=== PATIENT | male | born 1955 | race American Indian/Alaskan Native ===

== ENCOUNTER 2018-02-22 15:25 | Emergency (ER) | payer MEDICAID, OTHER ==
[2018-02-22] MEDS ORDERED: Albuterol 0.083% Inhal Sol (2.5 mg/3 mL) UD INH STA (15:43)
[2018-02-22] MEDS ORDERED: Albuterol 0.042% Inhal Sol (1.25 mg/3 mL) UD ONE (16:08)
--- NOTE | 2018-02-22 16:08 | RAD ---
HISTORY: COMPARISON: No prior. TECHNIQUE: Chest PA and lateral FINDINGS: LINES AND TUBES: None. LUNG AND PLEURA: The lungs are hyperinflated and there is peribronchial thickening with chronic changes in both lungs. No focal consolidation. HEART AND MEDIASTINUM: The heart is not enlarged. The hilar and mediastinal contours are within normal limits. SKELETAL STRUCTURES: The bony structures are within normal limits for the patient's age. VISUALIZED UPPER ABDOMEN: Normal. OTHER FINDINGS: None. IMPRESSION: No active pulmonary disease. COPD.
[2018-02-22] MEDS ORDERED: Albuterol 0.083% Inhal Sol (2.5 mg/3 mL) UD ONE (16:09)
[2018-02-22 16:34] LABS: BASO # 0.1 K/uL (0.0-0.2); BASO % 1.4 % (0.0-2.0); EOS % 0.4 % (0.0-4.0); HEMOGLOBIN 12.7 g/dL (12.0-18.0); LYMPH # 1.5 K/uL (1.0-4.3); LYMPH % 42.8 % (20.0-40.0); MEAN CELL VOLUME 92.6 fl (80.0-94.0); MEAN CORPUSCULAR HEMOGLOBIN 31.3 pg (27.0-31.0); MEAN CORPUSCULAR HGB CONC 33.8 g/dL (33.0-37.0); MONO # 0.4 K/uL (0.0-0.8); MONO % 10.6 % (0.0-10.0); NEUT # 1.6 K/uL (1.8-7.0); NEUT % 44.8 % (50.0-75.0); NRBC % 0.1 % (0.0-0.0); RBC 4.05 Mil/uL (4.40-5.90); RED CELL DISTRIBUTION WIDTH 14.3 % (11.5-14.5); WHITE BLOOD COUNT 3.6 K/uL (4.8-10.8)
--- NOTE | 2018-02-22 17:03 | ED PDOC ---
HPI: CCC, URI, Sore Throat Time Seen by Provider: 02/22/18 15:37 Chief Complaint (Nursing): Fever Chief Complaint (Provider): Feverish, cough x 1 week History Per: Patient History/Exam Limitations: no limitations Onset/Duration Of Symptoms: Days Current Symptoms Are (Timing): Still Present Sick Contacts (Context): None Associated Symptoms: Fever (did not take temperature at hoe ), Cough, Other ( Wheezing x 3 days). denies: Sputum, Myalgias Additional Complaint(s): Pt denies SOB. Pt is a smoker > 20 years. Pt denies history of asthma or COPD. Pt states denies SOB and states he is concerned he "caught pneumonia" being in [place] since he is from [place]. Past Medical History Reviewed: Historical Data, Nursing Documentation, Vital Signs Vital Signs: Last Vital Signs Temp 98 F 02/22/18 17:22 Pulse 78 02/22/18 17:22 Resp 20 02/22/18 17:22 BP 120/78 02/22/18 17:22 Pulse Ox 97 02/22/18 17:22 - Medical History PMH: No Chronic Diseases - Surgical History Surgical History: No Surg Hx - Family History Family History: States: No Known Family Hx - Living Arrangements Living Arrangements: With Family - Social History Current smoker - smoking cessation education provided: Yes Alcohol: None Drugs: Denies - Home Medications Home Medications: Ambulatory Orders Medication Instructions Recorded Albuterol Sulfate [Proventil Hfa] 0.09 mg IH Q6H #1 inhaler 02/22/18 Azithromycin 250 mg PO DAILY #6 tab 02/22/18 predniSONE [predniSONE Tab] 20 mg PO DAILY #12 tab 02/22/18 - Allergies Allergies/Adverse Reactions: Allergies Allergy/AdvReac Type Severity Reaction Status Date / Time No Known Allergies Allergy Verified 02/22/18 15:32 Review of Systems ROS Statement: Except As Marked, All Systems Reviewed And Found Negative Constitutional: Positive for: Fever, Chills, Malaise ENT: Negative for: Ear Pain Cardiovascular: Negative for: Chest Pain, Palpitations Respiratory: Positive for: Cough. Negative for: Shortness of Breath Physical Exam - Reviewed Nursing Documentation Reviewed: Yes Vital Signs Reviewed: Yes - Physical Exam Appears: Positive for: Well, Non-toxic, No Acute Distress Head Exam: Positive for: ATRAUMATIC, NORMAL INSPECTION, NORMOCEPHALIC Skin: Positive for: Normal Color, Warm, DRY Eye Exam: Positive for: Normal appearance ENT: Positive for: Normal ENT Inspection Neck: Positive for: Normal, Painless ROM Cardiovascular/Chest: Positive for: Regular Rate, Rhythm Respiratory: Positive for: Wheezing (Diffuse ). Negative for: Normal Breath Sounds, Accessory Muscle Use Back: Positive for: Normal Inspection Extremity: Positive for: Normal ROM Neurologic/Psych: Positive for: Alert, Oriented - Laboratory Results Result Diagrams: 02/22/18 16:21 02/22/18 16:21 - ECG O2 Sat by Pulse Oximetry: 94 Medical Decision Making Medical Decision Making: Oxygen 97% after 1 treatment. Second treatment ordered. Disposition - Clinical Impression Clinical Impression: URI (upper respiratory infection), COPD (chronic obstructive pulmonary disease) - Patient ED Disposition Is Patient to be Admitted: No Counseled Patient/Family Regarding: Diagnosis, Need For Followup, Rx Given - Disposition Disposition: Routine/Home Disposition Time: 16:58 Condition: STABLE Prescriptions: Albuterol Sulfate [Proventil Hfa] 0.09 mg IH Q6H #1 inhaler Azithromycin 250 mg PO DAILY #6 tab predniSONE [predniSONE Tab] 20 mg PO DAILY #12 tab Instructions: Bacterial Upper Respiratory Infection, Adult, Exacerbation of COPD Forms: [employer] (Upper Sorbian)
[2018-02-22] MEDS ORDERED: Albuterol-Ipratrop 3 mg / 0.5 (3 ml) UD INH STA (17:05)
[2018-02-22 17:22] VITALS: RESP 20
[2018-02-22 17:22] LABS: ALB/GLOB RATIO 0.9 (1.0-2.1); ALBUMIN 3.9 g/dL (3.5-5.0); ALT/SGPT 60 U/L (21-72); AST/SGOT 61 U/L (17-59); BLOOD UREA NITROGEN 12 mg/dl (9-20); CALCIUM 9.4 mg/dL (8.4-10.2); GFR AFRICAN-AMERICAN > 60; GFR NON-AFRICAN AMERICAN > 60
[2018-02-22 17:25] VITALS: BP 120/70; PULSE 72; TEMP 98.4
[2018-02-22 17:27] VITALS: O2SAT 94
== END 2018-02-22 17:25 | disposition home or self-care (01) ==
LOC: H.ER 15:25
DX: J44.9 Chronic obstructive pulmonary disease, unspecified (principal); J06.9 Acute upper respiratory infection, unspecified; F17.200 Nicotine dependence, unspecified, uncomplicated

== ENCOUNTER 2018-07-28 16:39 | Emergency (ER) | payer MEDICAID, MEDICARE, OTHER ==
[2018-07-28 16:45] VITALS: BP 144/80; PULSE 66; RESP 18; TEMP 98.5; O2SAT 99
--- NOTE | 2018-07-28 17:45 | ED PDOC ---
HPI: General Adult Chief Complaint (Provider): Nasal Dicharge History Per: Patient History/Exam Limitations: no limitations Current Symptoms Are (Timing): Still Present Additional Complaint(s): 62 year old male PMHx of HIV positive presents to the ER for an evaluation of runny nose onset for coupe of days. He states he has not taken any over the counter medication for relief. He has an appointment with his HIV doctor next week. He is not compliant with his medication for one month. Denies cough, fever, URI symptoms or headache. <Jackie Dunlap - Last Filed: 07/28/18 17:58> <Skyler Xie - Last Filed: 07/30/18 14:45> Time Seen by Provider: 07/28/18 16:49 Chief Complaint (Nursing): Flu-like Symptoms Past Medical History Reviewed: Historical Data, Nursing Documentation, Vital Signs Vital Signs: Last Vital Signs Temp 98.5 F 07/28/18 16:43 Pulse 66 07/28/18 16:43 Resp 18 07/28/18 16:43 BP 144/80 07/28/18 16:43 Pulse Ox 99 07/28/18 16:43 - Medical History PMH: COPD, HIV - Family History Family History: States: Unknown Family Hx - Immunization History Hx Tetanus Toxoid Vaccination: No Hx Influenza Vaccination: No Hx Pneumococcal Vaccination: No <Jackie Dunlap - Last Filed: 07/28/18 17:58> Vital Signs: Last Vital Signs Temp 98.5 F 07/28/18 16:43 Pulse 66 07/28/18 16:43 Resp 18 07/28/18 16:43 BP 144/80 07/28/18 16:43 Pulse Ox 99 07/28/18 17:59 <Skyler Xie - Last Filed: 07/30/18 14:45> - Home Medications Home Medications: Ambulatory Orders Medication Instructions Recorded RX: Albuterol Sulfate [Proventil 0.09 mg IH Q6H #1 inhaler 02/22/18 Hfa] RX: Azithromycin 250 mg PO DAILY #6 tab 02/22/18 RX: predniSONE [predniSONE Tab] 20 mg PO DAILY #12 tab 02/22/18 - Allergies Allergies/Adverse Reactions: Allergies Allergy/AdvReac Type Severity Reaction Status Date / Time No Known Allergies Allergy Verified 02/22/18 15:32 Review of Systems ROS Statement: Except As Marked, All Systems Reviewed And Found Negative Constitutional: Negative for: Fever ENT: Positive for: Nose Discharge. Negative for: Nose Congestion Respiratory: Negative for: Cough Neurological: Negative for: Headache Psych: Negative for: Suicidal ideation (homcidal ideation) <Jackie Dunlap Dot - Last Filed: 07/28/18 17:58> Physical Exam - Reviewed Nursing Documentation Reviewed: Yes Vital Signs Reviewed: Yes - Physical Exam Appears: Positive for: Well (eating chips ), Non-toxic, No Acute Distress Head Exam: Positive for: ATRAUMATIC, NORMAL INSPECTION, NORMOCEPHALIC Skin: Positive for: Normal Color, Warm, Dry. Negative for: Rash Eye Exam: Positive for: Normal appearance ENT: Positive for: Normal ENT Inspection Cardiovascular/Chest: Positive for: Regular Rate, Rhythm. Negative for: Murmur Respiratory: Positive for: Normal Breath Sounds. Negative for: Decreased Breath Sounds, Wheezing, Respiratory Distress Neurologic/Psych: Positive for: Alert, Oriented (x3). Negative for: Motor/Sensory Deficits <Jackie Dunlap S - Last Filed: 07/28/18 17:58> - ECG O2 Sat by Pulse Oximetry: 99 (RA) <Jackie Dunlap S - Last Filed: 07/28/18 17:58> Medical Decision Making Medical Decision Making: Time: 1648 Patient eloped before reassessment or discharge papers provided. Scribe Attestation: Documented by Jessica Portillo, acting as a scribe for Jackie Dunlap PA-C. Provider Scribe Attestation: All medical record entries made by the Scribe were at my direction and personally dictated by me. I have reviewed the chart and agree that the record accurately reflects my personal performance of the history, physical exam, medical decision making, and the department course for this patient. I have also personally directed, reviewed, and agree with the discharge instructions and disposition. <Jackie Dunlap S - Last Filed: 07/28/18 17:58> Disposition - Patient ED Disposition Is Patient to be Admitted: No - Disposition Disposition: Left W/O Treatment Disposition Time: 17:32 <Jackie Dunlap S - Last Filed: 07/28/18 17:58> <Skyler Xie - Last Filed: 07/30/18 14:45> - Clinical Impression Clinical Impression: Runny nose, Nasal congestion - Disposition Condition: STABLE Instructions: Cough, Runny Nose, and the Common Cold (DC) Forms: [facility] (Namibian) Addendum Addendum: 07/30/18 14:45 Reviewed Pa chart and agree. <Skyler Xie - Last Filed: 07/30/18 14:45>
== END 2018-07-28 18:40 | disposition home or self-care (01) ==
LOC: H.ER 16:39
DX: R09.81 Nasal congestion (principal); J44.9 Chronic obstructive pulmonary disease, unspecified; B20 Human immunodeficiency virus [HIV] disease